=== PATIENT | female | born 1985 | race Caucasian/White ===

== ENCOUNTER 2016-04-18 01:23 | Emergency (ER) | payer OTHER ==
--- NOTE | 2016-04-18 02:30 | PROVIDER DOCUMENTATION ---
HPI-General Adult - General Source: patient - History of Present Illness -Gen Adult Nature of Presenting Problems: PT IS A 30YOF PRESENTING TO THE ED C/O RIGHT SIDE FACIAL PAIN. PT STATES PAIN BEGAN ON SUN EVENING AND HAS GOTTEN PROGRESSIVELY WORSE SINCE. PT HAS A HISTORY OF MIGRAINES BUT SHE STATES THIS IS NOTHING LIKE ANY OF HER PREVIOUS MIGRAINES. THE PAIN IS MIDLINE OF FACE TO THE RIGHT SIDE WITH SOME TEARING OF RIGHT EYE AND MILD NUMBNESS ON CHIN. PT STATES SHE TOOK A NORCO 5/325 ABOUT 2200 TONIGHT AND AT MIDNIGHT SHE WAS UP CRYING IN PAIN AGAIN. SHE DENIES ANY INJURY, FEVER OR OTHER COMPLAINTS AT THIS TIME. Location of Pain/Injury: reports: face Pain Radiation: reports: no radiation Quality of Pain: reports: stabbing, throbbing Severity: reports: severe Onset/Duration: reports: 3 days ago Timing: reports: still present Context/Activities at Onset: reports: light activity Modifying Factors: improves with: nothing Associated Symptoms: reports: anxiety, malaise. denies: arm pain, back/neck pain, chest pain, constipation Similar Symptoms Previously?: No Recently seen or treated by another doctor?: No <Kristy Rose - Last Filed: 04/18/16 02:43> <Percy Barboza - Last Filed: 04/18/16 03:34> - General Chief Complaint: Facial Pain Stated Complaint: FACIAL PAIN Time Seen by Provider: 04/18/16 02:23 Allergies/Adverse Reactions: Patient Allergies Allergy/AdvReac Type Severity Reaction Status Date / Time Yeast Allergy RASH Verified 04/18/16 01:32 Home Medications: Home Medication List Medication Instructions Recorded Confirmed Last Taken Type Carbamazepine 200 mg PO 4XDAY #60 tablet 04/18/16 Unknown Rx Hydrocodone/Acetaminophen [Lortab 1 tab ORDERED PRN 04/18/16 04/17/16 21:45 History 5-325 mg Tablet] Oxycodone HCl/Acetaminophen 1 each PO Q4-8H PRN PRN #20 tablet 04/18/16 Unknown Rx [Percocet 7.5-325 mg Tablet] Review of Systems - Adult - REVIEW OF SYSTEMS - ADULT Constitutional: reports: no symptoms reported Eyes: reports: no symptoms reported Ears, Nose, Mouth & Throat: reports: see HPI, other (MIDLINE OF FACE TO THE RIGHT SIDE). denies: mouth swelling Cardiovascular: reports: no symptoms reported Respiratory: reports: no symptoms reported Gastrointestinal: reports: no symptoms reported Genitourinary: reports: no symptoms reported Musculoskeletal: reports: no symptoms reported Integumentary: reports: no symptoms reported Neurological: reports: no symptoms reported Psychiatric: reports: no symptoms reported Endocrine: reports: no symptoms reported Hematologic/Lymphatic: reports: no symptoms reported Allergic/Immunologic: reports: no symptoms reported All Other Systems: Reviewed and Negative <Kristy Rose - Last Filed: 04/18/16 02:43> Past History - Adult - PAST MEDICAL HISTORY-ADULT Review of Records: reports: Old Records Reviewed, Nursing Assessment Review, Medications Reviewed, Social history reviewed & non-contributory. Major Childhood Illnesses: reports: denies history Cardiovascular: reports: denies history Respiratory: reports: denies history Gastrointestinal: reports: denies history Obstetrical/Gynecological: reports: denies history Genitourinary: reports: denies history Musculoskeletal: reports: denies history Neurological: reports: denies history Endocrine/Immune: reports: denies history Other Conditions: reports: denies history - IMMUNIZATION STATUS Childhood Immunizations: See Nurse Assessment Flu Vaccine: See Nurse Assessment - FAMILY HISTORY Family History: reviewed, not pertinent - SOCIAL HISTORY Smoking: cigarettes, less than 1 pack/day Provider spent 3-5 mins advising pt. on dangers of tobacco.: Discussed manners to quit use, and f/u contacts for add'l counseling. Substance Use: none/never, alcohol Alcohol Use Frequency: occasionally Number of drinks per typical drinking period:: 3-4 drinks Living Situation: family <Kristy Rose - Last Filed: 04/18/16 02:43> Physical Exam-General - PHYSICAL EXAM-ADULT Initial Vital Signs Reviewed: Yes - CONSTITUTIONAL General Appearance: alert, severe distress, anxious. negative: appears well, no apparent distress - EYES Eyes: PERRL/EOMI, pink conjunctivae, fundi clear, no AV nicking - HEAD, EARS, NOSE, MOUTH & THROAT HENMT: normocephalic/atraumatic, moist mucous membranes, TMs normal, pharynx normal, other (PAIN MIDLINE INTO THE RIGHT SIDE OF HER FACE). negative: normal ENT inspection - NECK Neck: non-tender, full range of motion, supple, normal inspection - RESPIRATORY Respiratory: chest non-tender, lungs clear, normal breath sounds, no pleuratic chest pain, no respiratory distress, no accessory muscle use - CARDIOVASCULAR Cardiovascular: normal peripheral pulses, regular rate, rhythm, no edema, no gallop, no JVD, no murmur - GASTROINTESTINAL (ABDOMEN) Abdominal Exam: normal bowel sounds, non tender, soft, no organomegaly, no pulsatile mass - LYMPHATIC Lymphatic: no adenopathy - MUSCULOSKELETAL Back Exam: normal inspection, no CVA tenderness, no vertebral tenderness Extremity: normal range of motion, non-tender, normal gait, normal inspection, no pedal edema, no calf tenderness, normal capillary refill, pelvis stable - SKIN Integumentary: normal color, normal turgor, warm/dry - NEUROLOGIC Neurologic: [employer] II-XII nml as tested, grossly normal, no motor/sensory deficits - PSYCHIATRIC Psych/Mental Status: normal thought content, normal thought process, oriented x 3, anxious, disheveled, tearful <Kristy Rose - Last Filed: 04/18/16 02:43> Departure <Kristy Rose - Last Filed: 04/18/16 02:43> - Departure Time of Disposition Order: 03:33 Certified Medical Emergency: Emergent <Percy Barboza - Last Filed: 04/18/16 03:34> - Departure DIAGNOSIS: Trigeminal neuralgia Disposition: HOME 01 Condition: Good Additional Instructions: ED Follow Up Instructions: You have been treated by a care provider in the Emergency Department. These instructions are being provided to you so you can have an understanding of how to care for yourself upon discharge. Upon discharge from the Emergency Department, you are responsible for making arrangements for follow-up care by a physician of your choice. Take all prescribed medications as directed. Return to the Emergency Department immediately for any new or worsening symptoms. You may call the Physician Referral phone number at [phone] to obtain a list of Physicians who are taking new patients. Prescriptions: Carbamazepine 200 mg PO 4XDAY #60 tablet Oxycodone HCl/Acetaminophen [Percocet 7.5-325 mg Tablet] 1 each PO Q4-8H PRN PRN #20 tablet PRN Reason: Pain Referrals: None,PCP [Primary Care Provider] - Patricia Tuttle III, MD [STAFF PHYSICIAN] - Attestation - Scribe Verification/Attestation Scribe:: Kristy Rose Acting as Scribe for:: Percy Barboza Scribe documention review:: This chart was documented by a scribe and accurately reflects the service the provider performed and the decisions made by the provider. <Kristy Rose - Last Filed: 04/18/16 02:43> Physician Attestation - Physician Attestation I, the provider, attest to the following statement:: Percy Barboza Physician documentation Attestation:: This documentation recorded by the scribe accurately reflects the service I personally performed and the decisions made by me. <Kristy Rose - Last Filed: 04/18/16 02:43>
[2016-04-18] MEDS ORDERED: ZOFRAN ODT PO ONE (02:48)
[2016-04-18] MEDS ORDERED: DILAUDID IM ONE (02:48)
[2016-04-18 03:49] VITALS: BP 125/79
== END 2016-04-18 03:48 | disposition home or self-care (01) ==
LOC: ED 01:23
DX: G50.0 Trigeminal neuralgia (principal); R51 Headache; F17.210 Nicotine dependence, cigarettes, uncomplicated; Z71.6 Tobacco abuse counseling
CPT/HCPCS: J1170